=== PATIENT | male | born 1950 | race Caucasian/White ===

== ENCOUNTER 2025-03-22 07:19 | Emergency (ER) | payer MEDICARE, OTHER ==
[~2025-03-22] VITALS: Ht 188 cm; Wt 104.2 kg
[~2025-03-22 07:19] MED LIST: METO-395 PO
[2025-03-22 07:38] VITALS: BP 118/79; PULSE 91; RESP 16; TEMP 97.8; O2SAT 94
--- NOTE | 2025-03-22 08:32 | Physician Documentation ---
History of Present Illness ~ Chief Complaint: Back Pain Stated Complaint: BACK PAIN Time Seen by MD: 08:27 OK to notify your PCP?: Yes Source: patient Mode of Arrival: POV Exam Limitations: no limitations HPI Chief Complaint: Low back pain, lower extremity pain Caveat: None Independent Historians: History of Present Illness: Patient is a 74-year-old man who comes in complaining of six weeks of low back pain that has gotten progressively worse. Patient has had an MRI. Patient has an appointment with [facility] on March 31. Patient has [place] at home 5 mg but it is not working. Patient also takes tramadol but he states that he rarely takes these medications because all it does is make him drowsy. Patient denies any bowel incontinence, no urinary retention, no urinary incontinence. Patient denies lower extremity weakness. Patient complains of severe pain in the low back in shooting throbbing pain in the left calf left anterior ankle and heel. Patient denies any fever. Pain is worse when he tries standing. states that his pain is so severe he is unable to go to the restroom, he has been unable to walk because of the pain and she has gotten him a urinal and a wheelchair yesterday. Review of systems: All systems were reviewed and are negative except for what is indicated in the history of present illness. Past Medical History: Hypertension Past Surgical History: Lumbar orthopedic surgery x2 Social History: , no tobacco use, no alcohol use Medications: Reviewed as documented Nursing Notes Allergies: Reviewed as documented in Nursing Notes Medication Reconciliation Allergies: Coded Allergies: No Known Drug Allergies (Verified Allergy, Unknown, 03/22/25) Scheduled Metoprolol Succinate (Metoprolol Succinate), 1 TAB PO DAILY, (Reported) Scheduled PRN Hydrocodone Bit/Acetaminophen (Hydrocodone-Apap 10-325 Tablet), 1 TAB PO TID PRN PRN for pain Review of Systems All Other Systems at this time: Reviewed and Negative ROS Patient denies any other acute symptoms other than above. All other systems are negative Physical Exam Physical Exam Vital Signs: RN Vital Signs have been reviewed: Yes, Temperature: 97.8, Source: Temporal, Heart Rate: 91, Respiratory Rate: 16, BP: 118/79, Pulse Oximetry: 94, Weight: 104.200 Oxygen Flow Rate: 0 Pulse Oximetry Reflects: adequate oxygenation Physical Exam General Appearance: No distress HEENT: Normal OP, moist oral mucosa, PERRL, EOMI Neck: supple, normal ROM, trachea midline Pulmonary: No respiratory distress, CTA, BS equal Cardiac: RRR, no murmur, rub or gallop, Back: Outwardly normal-appearing, no lower back or midline tenderness Extremities: normal ROM, no swelling, non-tender, feet are warm with sensation intact to light touch Skin: intact, dry, warm, no rashes Neuro: AAOx3, speech is clear, no focal motor weakness, dorsiflexion, plantar flexion 5/5 bilaterally, hip flexors 5/5 bilaterally Psych: normal affect, good eye contact, no apparent hallucination, normal speech Progress Results/Orders Results/Orders Completed Orders - IGNACIO BARKER MD Morphine 4mg/Ml Inj. (Morphine Inj.) (03/22/25 08:30) Ketorolac Trometh 15mg/Ml Vial (Toradol (03/22/25 08:30) Medications Received in ER Medications (Trade) Dose Ordered Sig/Riley Route PRN Reason Start Time Stop Time Status Last Admin Dose Admin (morphine inj.) 4 mg ONCE ONCE IM 03/22/25 08:30 03/22/25 08:31 DC 03/22/25 08:42 4 MG (Toradol injection) 15 mg ONCE ONCE IM 03/22/25 08:30 03/22/25 08:31 DC 03/22/25 08:39 15 MG Vital Signs 03/22/25 07:38 Temp 97.8 Pulse 91 Resp 16 B/P (MAP) 118/79 Pulse Ox 94 O2 Flow Rate 0 Medical Decision Making Findings Differential diagnosis includes but is not limited to: Cauda equina syndrome, spinal stenosis, neuropathic pain, radiculopathy, acute on chronic low back pain Emergency department course/medical decision-making: Patient presents with the acute on chronic low back pain. Patient does not have any acute neurological symptoms that would indicate the need for emergent MRI of the lumbar spine. Patient just had a recent MRI of the lumbar spine that I reviewed showing some diffuse degenerative joint disease along with some facet encroachment on some of the nerve roots and herniated discs without spinal stenosis. There was no evidence of acute cauda equina syndrome. Patient is given morphine 4 mg IM and Toradol 15 mg IM for his pain. Patient is given a prescription for [place] 10 mg t.i.d. p.r.n. as needed. Patient had some [place] at home but is long . Treatment plan reviewed with the patient in his . Patient is stable for discharge. Departure Time of Disposition: 08:38 Disposition: 01 HOME / SELF CARE / HOMELESS Impression: Primary Impression: Acute on chronic low back pain Additional Impression: Neuropathic pain Condition: Stable Discharge Instructions: Managing Chronic Back Pain, Neuropathic Pain Additional Instructions: FOLLOW UP WITH YOUR YOUR SPECIALIST AT [facility] SCHEDULED. RETURN TO THE ER IF YOU HAVE BOWEL INCONTINENCE OR URINARY RETENTION/URINARY INCONTINENCE OR WEA KNESS IN YOUR LEGS. Prescriptions Hydrocodone Bit/Acetaminophen (Hydrocodone-Apap 10-325 Tablet) 10mg/325mg Tablet 1 TAB PO TID PRN PRN for pain for 5 Days, #15 TAB Prov: IGNACIO BARKER MD 03/22/25 Education Educated: Patient, Family Educated regarding: diagnosis, treatment, need for follow up Signature Scribe Signature: No scribe Attestation: No scribe IGNACIO BARKER MD Mar 22, 2025 08:32
[2025-03-22] MEDS: ketorolac trometh 15mg/ml vial 15 MG/ML ML IM ONE (08:39)
[2025-03-22] MEDS ORDERED: HYDR-3973 PO (08:40)
[2025-03-22] MEDS: morphine 4 MG/ML inj SYRINge IM ONE (08:42)
== END 2025-03-22 09:00 | disposition home or self-care (01) ==
LOC: ER 07:20
DX: G89.29 Other chronic pain (principal); M54.50 Low back pain, unspecified; M79.662 Pain in left lower leg; I10 Essential (primary) hypertension
CPT/HCPCS: 96372; 99284; J1885; J2270